=== PATIENT | female | born 1960 | race Caucasian/White ===

== ENCOUNTER → 2017-07-02 | Outpatient (CLI) | payer MEDICARE | END | disposition home or self-care (01) | LOC: MAMMO 10:35 | PROVIDERS: ATTEND Emergency Medicine | DX: Z12.31 Encounter for screening mammogram for malignant neoplasm of breast (principal) | CPT/HCPCS: 77063; G0202 ==

== ENCOUNTER → 2017-07-21 | Outpatient (CLI) | payer MEDICARE ==
--- NOTE | 2017-07-21 15:46 | MAM ---
EXAM DESCRIPTION: 3D Diagnostic, Left: Digital Mammography CLINICAL HISTORY: 56 yearsFemaleABNORMAL MAMMOGRAM . Focal asymmetry left breast.. COMPARISON: 3-D tomosynthesis screening bilateral study 07/02/2017. Targeted left breast ultrasound following this examination. Report from prior examination also reviewed. TECHNIQUE: Left breast LM projection full-field images, 3-D tomosynthesis digital mammographic technique. Also left breast synthesized LM full-field images. CAD not utilized. FINDINGS: The breast parenchymal density pattern is: Scattered areas of fibroglandular density. No skin thickening or nipple retraction focal asymmetry noted in the upper aspect of the middle third of the left breast, but radiolucencies suggest lymph tissue or cluster of fibroglandular nodular tissue. Ultrasound: heterogeneous fibroglandular and fibrofatty tissues at the 1200 clock position of the left breast 6 cm from the nipple. Minimally vascular. No discrete solid mass or cyst. No parenchymal edema or large calcifications. No skin thickening. No focal, stellate mass or density, , and no suspicious microcalcifications left breast. IMPRESSION: BI-RADS CATEGORY: 2 - BENIGN FINDINGS. FOLLOW UP: Return to routine digital bilateral screening, one year interval from June 2017. The FINDINGS and the follow-up plan were reviewed in person with the patient after the examination. Written communication explaining the IMPRESSION and follow-up will be mailed to the patient and referring care provider. According to the [employer], yearly mammograms are recommended starting at age 40 and continuing as long as a woman is in good health. Any breast change noted on a breast self-exam should be reported promptly to the patient's healthcare provider. Breast MRI is recommended for women with an approximately 20-25% or greater lifetime risk of breast cancer, including women with a strong family history of breast or ovarian cancer and women who have been treated for Hodgkin's disease. A negative mammographic report should not delay tissue diagnosis in patients with significant clinical history or physical findings. Extremely dense breast tissue limits the sensitivity of digital mammography. Electronically signed by: Manohar Jansen MD 07/21/2017 3:45 PM [facility]
--- NOTE | 2017-07-21 15:50 | US ---
EXAM DESCRIPTION: Breast,Left: Ultrasound CLINICAL HISTORY: 56 yearsFemaleABNORMAL MAMMO COMPARISON: Digital 3-D diagnostic tomosynthesis left breast on this visit. TECHNIQUE: Transcutaneous scanning of the anterior superior left breast utilizing two-dimensional and Doppler modes. Scanning performed by the waxer operator and Dr. Jansen. FINDINGS: Heterogeneous fibroglandular and fibrofatty tissues at the 1200 clock position of the left breast 6 cm from the nipple. Minimally vascular. No discrete solid mass or cyst. No parenchymal edema or large calcifications. No skin thickening. IMPRESSION: 1. Bi-Rads Category 2: Benign. 2. Please refer to left breast 3-D tomosynthesis diagnostic examination and report on this visit. The FINDINGS and the follow-up plan were reviewed in person with the patient after the examination. Written communication explaining the IMPRESSION and follow-up will be mailed to the patient and referring care provider. Electronically signed by: Manohar Jansen MD 07/21/2017 3:49 PM [employer]
== END | disposition home or self-care (01) ==
LOC: MAMMO 13:12
PROVIDERS: ATTEND Emergency Medicine
DX: R92.8 Other abnormal and inconclusive findings on diagnostic imaging of breast (principal)
CPT/HCPCS: 76641; G0206; G0279